=== PATIENT | female | born 1980 | race Caucasian/White ===

== ENCOUNTER 2021-09-18 17:31 | Emergency (ER) | payer SELFPAY ==
[2021-09-18] MEDS ORDERED: Hyoscyamine Sulfate SL 0.125 mg Tablet ONE (18:01)
[2021-09-18] MEDS ORDERED: Ondansetron ODT 4 MG TAB ONE (18:01)
== END 2021-09-18 18:08 | disposition home or self-care (01) ==
LOC: BURERS 17:31
DX: A08.4 Viral intestinal infection, unspecified (principal); F17.220 Nicotine dependence, chewing tobacco, uncomplicated
CPT/HCPCS: 99283; Q0162